=== PATIENT | male | born 1960 | race Caucasian/White ===

== ENCOUNTER → 2018-07-02 09:45 | Outpatient (CLI) | payer BC, SELFPAY ==
--- NOTE | 2018-07-01 | LES_PTH ---
PATIENT: DANIEL CLEMENTS LOC: [facility] U#:[id number] AGE/SX: 64/M ROOM: RE07/02/[address]: Dr. Shlomo Tanner MD : 1960 BED: DIS: SPEC #: [id number] RECD: 07/04/18 14:43 STATUS: YESIKA FLACO #: [id number] LAKEISHA: 07/01/18 00:[address]: Shlomo Tanner DEPT: SURGICAL PATHOLOGY RECD BY: Atilio Onofre ENTERED: 07/04/18 14:43 SP TYPE: Lesion OTHR DR: Dr. Jac Tanner III, MD Tissues: Skin of scalp, NOS Procedures: Surgery Specimen Level IV HEADER OPERATION: Excision left scalp lesion PRE-OP DIAGNOSIS: Left scalp lesion TISSUE SUBMITTED: Scalp tissue MICROSCOPIC DIAGNOSIS Scalp lesion, biopsy: Consistent with common blue nevus. AM:sp 07/05/18 COMMENT Immunohistochemistry ([id number]) supports the above diagnosis. Case has been reviewed in consultation with Dr. Julien who concurs with the above diagnosis. IDC:SJ MICROSCOPIC DESCRIPTION Slides are reviewed. GROSS DESCRIPTION Received in fixative is one container labeled with the patient's name and designated scalp. The specimen consists of a piece of baird-white skin ellipse measuring 0.9 x 0.5 cm and up to 0.5 cm in thickness. There is a brown lesion on the surface measuring 2.4 x 0.2 cm. The specimen is inked and submitted entirely in one cassette. It will be sectioned at the time of embedding. ISAURA:koffi 07/04/18 TC: 5 CPT: 10391
--- NOTE | 2018-07-01 | IMM_PTH ---
PATIENT: DANIEL CLEMENTS LOC: [facility] U#:[id number] AGE/SX: 64/M ROOM: RE07/02/[address]: Dr. Shlomo Tanner MD : 1960 BED: DIS: SPEC #: [id number] RECD: 07/05/18 10:34 STATUS: YESIKA REQ #: [id number] LAKEISHA: 07/01/18 00:[address]: Shlomo Tanner DEPT: IMMUNOHISTOCHEMISTRY RECD BY: Prceious Martin ENTERED: 07/05/18 10:35 SP TYPE: IMMUNO OTHR DR: Dr. Jac Tanner III, MD Tissues: Skin of head, NOS Procedures: MACRO (add) Vimentin (add) Pankeratin (add) MELAN-A (initial) S-100 (add) PHYSICIAN & INSTITUTION [place] [facility] [id number] SPECIMEN INFORMATION: Tissue Source: Scalp tissue Clinical Info: Left scalp lesion Specimen Number: [id number] CPT code: 53581, 70775 x4 METHODOLOGY: Deparaffinized sections of prefer/formalin-fixed tissue or PAP/DQ stained slides are incubated with monoclonal/polyclonal antibodies/oligonucleotide probes. Localization is made via biotin free immunoperoxidase method. Appropriate controls are performed and reacted as expected. Results on target cell population are indicated in the following table: RESULTS: ANTIBODY / CLONE RESULT S-100 (4C4.9) positive Melan A (A103) positive Vimentin (V9) positive AE1-3 (AE1/AE3/PCK26) positive Macro (HAM-56) positive, focal These tests were developed and their performance characteristics determined by [facility]. They may not have been cleared or approved by the U.S. Food and Drug Administration. The FDA has determined that such clearance or approval is not necessary. INTERPRETATION: Skin lesion of scalp, biopsy: Consistent with common blue nevus AM:linda 07/06/18
== END ==
PROVIDERS: Family Provider Family Medicine; PCP Family Medicine; Referring Provider Surgery; Visit Provider Surgery
DX: L98.9 Disorder of the skin and subcutaneous tissue, unspecified (principal)
CPT/HCPCS: 88305; 88341; 88342

== ENCOUNTER 2022-05-08 07:00 | Outpatient (RCR) | payer BC, SELFPAY ==
--- NOTE | 2022-04-24 08:46 | HP.PTEVAL_ITS ---
Patient's Visit Information DANIEL CLEMENTS is a 61 year old M referred to Physical Therapy by Dr. Chaitanya Schaefer DO with a diagnosis of LBP. Date of Evaluation: 04/24/22 Physical Therapist: Srikanth Hernandez, PT, ATC - Visit Plan Frequency: 2x /Week Duration: 2-4 Weeks Plan: Postural edu, REIL, L/S stab ex's, and HEP - Subjective Pt reports he has had LBP that radiates into his R LE for approximately 4 years. Pt notes the pain is constant, but notes some days are better than others. Pt reports he is an avid runner and exercises, and is surprised he cant work out the pain through his daily routines. Pt notes his pain is the worst when he is sitting and driving. Pt notes he has sleep difficulty secondary to pain. Pt notes he is taking anti-inflammatories, which is helping some. Pt reports he has tried inversion tables, but has Mennierres disease and was unable to tolerate that position. Pt reports he has had xrays which revealed no pathology to his hip, but notes he has some bone spurs in his L/S. Pt reports he had a la minectomy performed in 1989. Pt notes prolonged running will also increase his pain. Pt reports remaining active helps to decrease his pain. 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 4/10 pain while sitting at rest (dull achy pain), 6/10 pain at worst (prolonged driving) - Pain LBP Pain Intensity (Out of 10): 4 Pain Intensity Range: 6 - Objective Neuro: B LE sensation is WNL to light touch. B patellar reflex= 1/3. MMT: B LE's are 5/5 throughout. ROM: L/S ext is moderately limited today. All other ranges are WNL. Repeated movements: RFIS 10x3 provoked pain towards the R hip region. NADIA 10x3 had NE. Prone prop on elbows 1 min x 2 had NE. REIL 10x2 elimi nated sx's and pt felt better. special tests: No pos tests for R hip this date - Balance/Special Test Scores Oswestry Low Back Score: 10 - Goals Goal 1:: Decrease LBP x 50% to aid with sleep Goal Time Frame: 2-4 Weeks Goal 2:: Decrease the frequency and intensity of R LE radiculopathy x 50% to aid with sitting tolerance Goal Time Frame: 2-4 Weeks Goal 3:: Pt will both physically and verbally display proper posture to aid with preventing future episodes of LBP Goal Time Frame: 2-4 Weeks Goal 4:: I with Hep Goal Time Frame: 2-4 Weeks - Rehabilitation Potential Physical Therapy Diagnosis: Pt has LBP, R LE radiculopathy, and decreased L/S ext secondary to L/S disc derrangement Rehabilitation Potential: Good - Anticipated Interventions Patient/Client Instruction: Educate patient on: Condition, Plan of Care For the Purpose of:: To improve self management Therapeutic Exercise to Include: Body mechanics, Postural training, Dynamic Lumbar Stabilization For the Purpose of:: To decrease pain, To increase ROM, To improve muscle performance and motor function Thank you for the opportunity to evaluate your patient. For Medicare and Medicare HMO plans, please review the plan of care and approve it. It will need to be FAXED BACK to us at [phone] for Medicare purposes. For Medicare only, by signing this I certify the plan of care. Please let me know if there are questions or concerns regarding this plan of care. Physician Signature: Date:
--- NOTE | 2022-05-08 07:40 | HP.PTDCSUM ---
It has been my pleasure to treat DANIEL CLEMENTS referred by Dr. Chaitanya Schaefer DO, with the diagnosis of LBP for a total of 4 visit(s). Discharge Date: Please see the following information for a summary of their discharge status. Subjective: Pt reports he ran 6 miles yesterday and lifted hard, and has no pain this date LBP Pain Intensity (Out of 10): 0 % Improvement: 90 Objective/Function: Pt is now I with HEP. LBP 0/10. Pt is now posturally aware. No R LE radiculopathy at this time. Pt has achieved all Rx goals Goal 1:: Decrease LBP x 50% to aid with sleep Goal Progress: Goal Met Goal 2:: Decrease the frequency and intensity of R LE radiculopathy x 50% to aid with sitting tolerance Goal Progress: Goal Met Goal 3:: Pt will both physically and verbally display proper posture to aid with preventing future episodes of LBP Goal Progress: Goal Met Goal 4:: I with Hep Goal Progress: Goal Met Plan: Discharge to HEP If there are questions or concerns regarding this patient's physical therapy, please feel free to call me at [phone]. Thank you for the referral of this patient. Sincerely, Srikanth Hernandez, PT, ATC Balance/Gait/Functional tests - Balance/Special Test Scores Oswestry Low Back Score: 3
== END 2022-05-08 19:00 | disposition home or self-care (01) ==
LOC: PT 07:00
PROVIDERS: Referring Provider Orthopaedic Surgery; Visit Provider Orthopaedic Surgery
DX: M51.36 Other intervertebral disc degeneration, lumbar region (principal); G57.01 Lesion of sciatic nerve, right lower limb
CPT/HCPCS: 97110; 97161; 97164

== ENCOUNTER → 2022-11-03 | Outpatient (CLI) | payer BC, SELFPAY ==
--- NOTE | 2022-11-03 12:32 | MRI_ITS ---
STUDY: MRI LUMBAR SPINE WITHOUT CONTRAST REASON FOR EXAM: Male, 62 years old. Right leg pain. TECHNIQUE: Standardized fat and water weighted pulse sequences were obtained in the sagittal and axial planes. COMPARISON: Lumbar spine radiographs 04/22/2022. FINDINGS: T11-T12 and T12-L1: (Sagittal only). Normal endplates. Normal disc height, hydration and morphology. No ventral extradural defects. Normal central canal and bilateral intervertebral neural foramina. Normal lumbar lordosis. There is no substantial scoliosis. Normal conus medullaris that terminates at the T12-L1 disc space level. L1-2: Normal endplates. Normal disc height, hydration and morphology. Normal bilateral facet joints. Normal central canal and bilateral lateral recesses. Normal bilateral intervertebral neural foramina. L2-3: Normal endplates. Normal disc height, hydration and morphology. Normal bilateral facet joints. Normal central canal and bilateral lateral recesses. Normal bilateral intervertebral neural foramina. L3-4: Normal endplates. Normal disc height, hydration and morphology. Normal bilateral facet joints. Normal central canal and bilateral lateral recesses. Normal bilateral intervertebral neural foramina. L4-5: Normal endplates. Mild disc space height narrowing. Mild ventral extradural defect due to posterior bulging annulus. Mild bilateral degenerative facet arthropathy. Moderate central canal stenosis with AP canal diameter of 7 mm. Normal bilateral lateral recesses. Mild stenosis of the right intervertebral neural foramen. Normal left intervertebral neural foramen. L5-S1: Normal endplates. Mild disc space height narrowing. Mild degenerative retrolisthesis of L5 on S1. Mild bilateral degenerative facet arthropathy. Normal central canal and bilateral lateral recesses. Mild stenosis of the bilateral intervertebral neural foramina. Normal visualized sacral ala. Normal visualized paraspinous soft tissue structures. MRI/Spine Lumbar (Routine) IMPRESSION: 1. Moderate central canal stenosis at L4-L5 disc space level with an AP canal diameter 7 mm, small posterior bulging annulus and mild stenosis of the right intervertebral neural foramen. 2. Mild degenerative retrolisthesis of L5 on S1 and mild stenosis of the bilateral intervertebral neural foramina. 3. No MRI evidence of lumbar extruded disc fragment or disc protrusion. Electronically Signed: Giacomo Peres MD at 12:02 EDT ,
== END | disposition home or self-care (01) ==
PROVIDERS: Referring Provider Orthopaedic Surgery; Visit Provider Orthopaedic Surgery
DX: M51.26 Other intervertebral disc displacement, lumbar region (principal)
CPT/HCPCS: 72148

== ENCOUNTER → 2025-07-02 | Outpatient (CLI) | payer BC, SELFPAY ==
--- NOTE | 2025-07-02 | MRI_ITS ---
PROCEDURE: LOWER EXT/JT ONLY/W CONTRAST 07/02/2025 REASON FOR EXAM: CHRONIC RIGHT HIP PAIN TECHNIQUE: Procedure Code: MRILEJW Modality: MR Procedure: LOWER EXT/JT ONLY/W CONTRAST CONTRAST: Dilute intra-articular post arthrogram COMPARISON: None FINDINGS: Bone marrow and osseous structures: There is no abnormal marrow edema to suggest stress reaction or fracture. There is no MR evidence of avascular necrosis. Articular cartilage: No significant joint space narrowing. No full or partial- thickness cartilage defects are identified. Labrum: No discrete labral tear or paralabral cyst. Hip joint: There is no intra-articular body. The ligamentum teres is unremarkable. Hip abductors: The gluteus medius and minimus tendons are intact without tendinosis or tear. Iliopsoas tendon: Intact without tendinosis or tear, with focal intrasubstance contrast injection at the medial margin and injection site. No iliopsoas bursitis. There is increased T2 signal and adjacent fluid signal within the common tendon origin of the long head of the biceps femoris, and semitendinosis at the posterior medial aspect of the ischial tuberosity with a bare area consistent with partial avulsion at the posterior margin, grade 2-3 hamstring tear. MRI/Lower Ext/Jt Only/W Contrast IMPRESSION: There is increased T2 signal and adjacent fluid signal within the common tendon origin of the long head of the biceps femoris, and semitendinosis at the posterior medial aspect of the ischial tuberosity wit h a bare area consistent with partial avulsion at the posterior margin, grade 2-3 hamstring tear. Reading Location: [facility]
--- NOTE | 2025-07-02 09:30 | RAD_ITS ---
PROCEDURE: ARTHROGRAM HIP W/ MRI 07/02/2025 REASON FOR EXAM: CHRONIC RIGHT HIP PAIN TECHNIQUE: Procedure Code: RADARH Modality: DX Procedure: ARTHROGRAM HIP W/ MRI. The patient was in the supine position. The skin overlying the right hip joint was prepped and draped in the usual sterile fashion. Following local anesthetic application and under direct fluoroscopic guidance, a 22 gauge spinal needle was placed into the hip joint. 2 cc of Isovue-300 was injected for confirmation. Following this, 10 cc of dilute MRI contrast was injected. The patient tolerated the procedure well. Radiation dose: Fluoroscopy: 38 seconds. Radiation dose: 11.7 mGy. 1 image was obtained. COMPARISON: Prior radiographs dated June 15, 2025. FINDINGS: Successful right hip injection for MRI examination. RAD/Arthrogram Hip w/ MRI IMPRESSION: Successful right hip injection for MRI examination. The patient tolerated the procedure well. Reading Location: [place] [id number]
[2025-07-02] MEDS: Lidocaine 2% (5ml sdv) 5 ML VIAL.MPF INFILT (09:44)
[2025-07-02] MEDS: Gadoterate Meglumine Diluted 10 ML, Iopamidol 5 ML, Lidocaine 1% (20 ml mdv) 5 ML, Epin... INTRAARTIC (09:46)
[2025-07-02] MEDS: Iopamidol 10 ML in Syringe 1 EACH 600 ML INTRAARTIC (09:46)
== END | disposition home or self-care (01) ==
LOC: RAD 09:10
PROVIDERS: Referring Provider Orthopaedic Surgery; Visit Provider Orthopaedic Surgery
DX: S73.191A Other sprain of right hip, initial encounter (principal); G57.01 Lesion of sciatic nerve, right lower limb; M25.551 Pain in right hip
CPT/HCPCS: 27093; 73722; 77002; Q9967